=== PATIENT | male | born 2000 | race Caucasian/White ===

== ENCOUNTER 2020-03-24 21:09 | Emergency (ER) | payer OTHER ==
[2020-03-24] MEDS ORDERED: Alum Hydrox/Mag Hydrox/Simeth 15 ML, Lidocaine 2% 15 ML PO ONE ×2 (21:37)
--- NOTE | 2020-03-24 21:40 | EDM.PDOC ---
ED HPI GENERAL MEDICAL PROBLEM - General Chief Complaint: Gastrointestinal Problem Stated Complaint: BREATHING TROUBLES Time Seen by Provider: 03/24/20 21:32 Source of Information: Reports: Patient, RN Notes Reviewed History Limitations: Reports: No Limitations - History of Present Illness INITIAL COMMENTS - FREE TEXT/NARRATIVE: 19-year-old gentleman presents emergency department a complaint of epigastric pain, he states he has had trouble with reflux for some time was on Prilosec seemed to help he has been out of that medication now for a week he noticed epigastric pain came on after he had eaten dinner tonight the pain was so intense and so severe that he called the ambulance she arrived by EMS services. EKG was done by EMS crew demonstrates normal sinus rhythm there is no ST elevations or depressions - Related Data Allergies Allergy/AdvReac Type Severity Reaction Status Date / Time No Known Allergies Allergy Verified 03/24/20 21:25 Home Meds: Home Meds Omeprazole 20 mg PO BID 03/24/20 [History] Past Medical History Gastrointestinal History: Reports: GERD Social & Family History - Tobacco Use Tobacco Use Status *Q: Never Tobacco User - Recreational Drug Use Recreational Drug Use: No ED ROS GENERAL - Review of Systems Review Of Systems: See Below Constitutional: Reports: No Symptoms, Other (Feeling of impending doom) Respiratory: Reports: Shortness of Breath Cardiovascular: Reports: Chest Pain GI/Abdominal: Reports: Abdominal Pain ED EXAM, GI/ABD - Physical Exam Exam: See Below Exam Limited By: No Limitations General Appearance: Alert, WD/WN, No Apparent Distress Respiratory/Chest: No Respiratory Distress, Lungs Clear, Normal Breath Sounds, No Accessory Muscle Use, Chest Non-Tender Cardiovascular: Regular Rate, Rhythm, No Murmur GI/Abdominal Exam: Soft, Non-Tender Back Exam: Normal Inspection, Full Range of Motion Course - Vital Signs Last Recorded V/S: Last Vital Signs Temp 98.5 F 03/24/20 21:26 Pulse 85 03/24/20 21:26 Resp 16 03/24/20 21:26 BP 154/82 H 03/24/20 21:26 Pulse Ox 97 03/24/20 21:26 - Orders/Labs/Meds Labs: Laboratory Tests 03/24/20 03/24/20 03/24/20 Range/Units 21:53 21:53 21:53 WBC 10.4 (4.5-11.0) K/uL RBC 4.96 (4.30-5.90) M/uL Hgb 14.7 (12.0-15.0) g/dL Hct 42.4 (40.0-54.0) % MCV 86 (80-98) fL MCH 30 (27-31) pg MCHC 35 (32-36) % Plt Count 307 (150-400) K/uL Neut % (Auto) 59 (36-66) % Lymph % (Auto) 29 (24-44) % Trigg % (Auto) 9 H (2-6) % Eos % (Auto) 2 (2-4) % Baso % (Auto) 0 (0-1) % Sodium 139 L (140-148) mmol/L Potassium 3.8 (3.6-5.2) mmol/L Chloride 103 (100-108) mmol/L Carbon Dioxide 26 (21-32) mmol/L Anion Gap 13.8 (5.0-14.0) mmol/L BUN 8 (7-18) mg/dL Creatinine 1.2 (0.8-1.3) mg/dL Est Cr Clr Drug Dosing 106.88 mL/min Estimated GFR (MDRD) > 60 (>60) Glucose 80 (74-106) mg/dL Calcium 9.3 (8.5-10.1) mg/dL Troponin I < 0.017 (0.000-0.056) ng/mL Meds: Medications Discontinued Medications Generic Name Dose Route Start Last Admin Trade Name Freq PRN Reason Stop Dose Admin Al Hydroxide/Mg Hydroxide 15 0 ml 03/24/20 21:37 03/24/20 21:46 ml/ Lidocaine HCl 15 ml PO 03/24/20 21:38 15 ml ONETIME ONE Administration Lorazepam 0.5 mg 03/24/20 22:11 03/24/20 22:16 Ativan PO 03/24/20 22:12 0.5 mg ONETIME ONE Administration Departure - Departure Time of Disposition: 22:40 Disposition: Home, Self-Care 01 Condition: Fair Clinical Impression: Acid reflux Qualifiers: Esophagitis presence: without esophagitis Qualified Code(s): K21.9 - Gastro- esophageal reflux disease without esophagitis - Discharge Information Instructions: Indigestion, [id number] Referrals: PCP,None [Primary Care Provider] - Forms: ED Department Discharge Additional Instructions: Recommend restarting the Prilosec, please followup with your primary care provider in 3-5 days if not better, please call return to the emergency department with worsening of symptoms. Sepsis Event Note (ED) - Evaluation Sepsis Screening Result: No Definite Risk - Focused Exam Vital Signs: Vital Signs Temp Pulse Resp BP Pulse Ox 03/24/20 21:26 98.5 F 85 16 154/82 H 97 03/24/20 21:24 98.5 F 85 16 154/82 H 97 - Assessment/Plan Plan: Assessment Acuity = acute Site and laterality = reflux Etiology = probable underlying gastroesophageal reflux disease in combination of generalized anxiety disorder Manifestations = none Location of injury = Home Lab values = CBC, bMP, troponin all within normal limits Plan Good improvement with GI cocktail and half milligram Ativan recommend restarting the Prilosec [id number] follow-up primary care in 3 to 5 days for further evaluation This note was dictated using [employer] voice recognition software please call with any questions on syntax or grammar.
[2020-03-24] MEDS ORDERED: LORazepam 0.5 MG Tab PO ONE (22:11)
== END 2020-03-24 22:51 | disposition home or self-care (01) ==
LOC: JP.ED 21:09
DX: K21.9 Gastro-esophageal reflux disease without esophagitis (principal); Z79.899 Other long term (current) drug therapy
CPT/HCPCS: 36415; 80048; 84484; 85025; 99284; A9270; 99282